=== PATIENT | male | born 1970 | race Two or more races ===

== ENCOUNTER → 2017-03-06 | Emergency (ER) | payer OTHER ==
[~2017-03-06] VITALS: Ht 182.9 cm; Wt 108.9 kg
== END | disposition home or self-care (01) ==
LOC: ER 20:40
DX: R10.12 Left upper quadrant pain (principal)

== ENCOUNTER 2017-06-22 13:57 | Outpatient (CLI) | payer OTHER | END 2017-06-22 14:08 | disposition home or self-care (01) | LOC: T RESPIRAT 13:57 | DX: G47.39 Other sleep apnea (principal) ==

== ENCOUNTER 2024-08-22 08:40 | Outpatient (CLI) | payer OTHER | END 2024-08-22 13:39 | disposition home or self-care (01) | LOC: SONOGRAMA 08:40 | PROVIDERS: ATTEND Pathology Anatomic Pathology | DX: D34 Benign neoplasm of thyroid gland (principal); E07.89 Other specified disorders of thyroid; E04.2 Nontoxic multinodular goiter ==